=== PATIENT | female | born 1980 | race Caucasian/White ===

== ENCOUNTER 2018-01-22 17:56 | Emergency (ER) | payer MEDICAID ==
[~2018-01-22] VITALS: Ht 180.3 cm; Wt 87.8 kg
[2018-01-22 18:10] VITALS: BP 135/85
== END 2018-01-22 19:54 | disposition home or self-care (01) ==
LOC: ED 18:58
DX: R60.0 Localized edema (principal); E10.65 Type 1 diabetes mellitus with hyperglycemia; G43.909 Migraine, unspecified, not intractable, without status migrainosus; M06.9 Rheumatoid arthritis, unspecified; M79.7 Fibromyalgia; Z86.73 Personal history of transient ischemic attack (TIA), and cerebral infarction without residual deficits
CPT/HCPCS: 99284